=== PATIENT | female | born 1985 | race Caucasian/White ===

== ENCOUNTER → 2019-03-24 | Outpatient (CLI) | payer OTHER ==
[~2019-03-24] MED LIST: BC PILLS; BIRTH CONTROL PILLS; CIPR500 PO; FAMO40 PO; HYDACE5 PO; IBUP800 PO; ONDA4ODT MM; OXYACE5T PO; PRENATAL ONE T1 EACH PO
== END | disposition home or self-care (01) ==
LOC: LAB SHORT 11:20 → LAB 11:20
DX: J02.9 Acute pharyngitis, unspecified (principal)
CPT/HCPCS: 87081